=== PATIENT | female | born 1990 | race African-American/Black ===

== ENCOUNTER 2017-12-16 15:44 | Emergency (ER) | payer OTHER ==
[~2017-12-16] VITALS: Ht 154.9 cm; Wt 90.0 kg
[~2017-12-16 15:44] MED LIST: AVIATAB PO; PREN29TA PO
[2017-12-16 15:47] VITALS: BP 141/89; PULSE 102; RESP 16; TEMP 98.7; O2SAT 100
--- NOTE | 2017-12-16 17:43 | PD ---
HPI Chief Complaint: Related Problem Time Seen by Provider: 17:35 Travel History International Travel<30 days: No Contact w/Intl Traveler<30days: No Traveled to known affect area: No History of Present Illness HPI 27-year-old female , LMP October 12, found out she was 2 weeks ago, here for evaluation of vaginal spotting. The patient reports that while at work today she noted vaginal spotting. She denies any pain. No urinary symptoms. No clots. She has not yet been evaluated by an INTERACTIVE DESIGNER physician and has not yet had an ultrasound to confirm an IUP. PFSH Past Medical History ?: Unknown LMP: "SEPTEMBER" Past Surgical History Section: Yes Social History Alcohol Use: Yes ("I HAVEN'T LATELY") Tobacco Use: Yes (11/22 PPD) Substance Use: No Allergies-Medications (Allergen,Severity, Reaction): Coded Allergies: No Known Allergies (Unverified Adverse Reaction, Unknown, 12/16/17) Reported Meds & Prescriptions Reported Meds & Active Scripts Active Aviane (Levonorgestrel-Ethinyl Estradiol) 0.1-20 Mg-Mcg Tab 1 Tab PO DAILY Plus Iron 29-1 mg ( Vit-Iron Carbonyl) 1 Tab Tab 1 Tab PO DAILY Review of Systems Except as stated in HPI: all other systems reviewed are Neg Physical Exam Narrative GENERAL: Well-developed, well-nourished, comfortable, no apparent distress. SKIN: Focused skin assessment warm/dry. HEAD: Atraumatic. Normocephalic. EYES: Pupils equal and round. No scleral icterus. No injection or drainage. ENT: No nasal bleeding or discharge. Mucous membranes pink and moist. CARDIOVASCULAR: Regular rate and rhythm. No murmur appreciated. RESPIRATORY: No accessory muscle use. Clear to auscultation. Breath sounds equal bilaterally. GASTROINTESTINAL: Abdomen soft, non-tender, nondistended. MUSCULOSKELETAL: No obvious deformities. No clubbing. No cyanosis. No edema. NEUROLOGICAL: Awake and alert. No obvious cranial nerve deficits. Motor grossly within normal limits. Normal speech. PSYCHIATRIC: Appropriate mood and affect; insight and judgment normal. Data Data Last Documented VS Vital Signs Date Time Temp Pulse Resp B/P (MAP) Pulse Ox O2 Delivery O2 Flow Rate FiO2 12/16/17 15:47 98.7 102 16 141/89 (106) 100 Orders Orders Beta Hcg (Quant/Titer) (12/16/17 17:41) Complete Blood Count With Diff (12/16/17 17:41) Comprehensive Metabolic Panel (12/16/17 17:41) Urinalysis - C+S If Indicated (12/16/17 17:41) Ed Urine Pregnancytest Poc (12/16/17 17:41) Urine Culture (12/16/17 18:14) Nitrofurantoin Monohyd Macrocr (Macrobid (12/16/17 18:45) Us Pelvis (Ques Pr/Ect)W Trans (12/16/17 ) Labs Laboratory Tests Test 12/16/17 18:14 White Blood Count 5.2 TH/MM3 Red Blood Count 4.37 MIL/MM3 Hemoglobin 11.5 GM/DL Hematocrit 34.4 % Mean Corpuscular Volume 78.6 FL Mean Corpuscular Hemoglobin 26.4 PG Mean Corpuscular Hemoglobin Concent 33.6 % Red Cell Distribution Width 16.0 % Platelet Count 232 TH/MM3 Mean Platelet Volume 8.9 FL Neutrophils (%) (Auto) 52.1 % Lymphocytes (%) (Auto) 35.5 % Monocytes (%) (Auto) 11.1 % Eosinophils (%) (Auto) 0.9 % Basophils (%) (Auto) 0.4 % Neutrophils # (Auto) 2.7 TH/MM3 Lymphocytes # (Auto) 1.8 TH/MM3 Monocytes # (Auto) 0.6 TH/MM3 Eosinophils # (Auto) 0.0 TH/MM3 Basophils # (Auto) 0.0 TH/MM3 CBC Comment DIFF FINAL Differential Comment Urine Color YELLOW Urine Turbidity HAZY Urine pH 6.5 Urine Specific [place] 1.014 Urine Protein 30 mg/dL Urine Glucose (UA) NEG mg/dL Urine Ketones 40 mg/dL Urine Occult Blood LARGE Urine Nitrite NEG Urine Bilirubin NEG Urine Urobilinogen LESS THAN 2.0 MG/DL Urine Leukocyte Esterase MOD Urine RBC 31 /hpf Urine WBC 15 /hpf Urine Squamous Epithelial Cells 9 /hpf Urine Amorphous Sediment OCC Urine Bacteria MOD /hpf Urine Mucus FEW /lpf Microscopic Urinalysis Comment CULTURE INDICATED Blood Urea Nitrogen 8 MG/DL Creatinine 0.59 MG/DL Random Glucose 81 MG/DL Total Protein 7.5 GM/DL Albumin 3.9 GM/DL Calcium Level 8.9 MG/DL Alkaline Phosphatase 56 U/L Aspartate Amino Transf (AST/SGOT) 9 U/L Alanine Aminotransferase (ALT/SGPT) 14 U/L Total Bilirubin 0.3 MG/DL Sodium Level 134 MEQ/L Potassium Level 3.5 MEQ/L Chloride Level 104 MEQ/L Carbon Dioxide Level 21.9 MEQ/L Anion Gap 8 MEQ/L Estimat Glomerular Filtration Rate 146 ML/MIN Human Chorionic Gonadotropin, Quant 66734 MIU/ML [facility] Medical Decision Making Medical Screen Exam Complete: Yes Emergency Medical Condition: Yes Medical Record Reviewed: Yes Differential Diagnosis Ectopic , threatened , spontaneous , missed , inevitable , implantation bleed Narrative Course Vital signs reviewed. CBC: WBC 5.2, hemoglobin 11.5, hematocrit 34.4, platelets 232. CMP is essentially unremarkable. Beta hCG is 11,072. Patient's blood type from previous visit is O+. UA: Hazy, 30 protein, 40 ketones, large occult blood, moderate leukocyte esterase, 31 RBCs, 15 WBCs, moderate bacteria. The patient was started on Macrobid. Pelvic ultrasound: CONCLUSION: 1. Intrauterine with apparent demise. heart tones cannot be demonstrated at the time of imaging. 2. Small corpus luteal cyst of the left ovary. No evidence of ectopic. Patient was made aware of all findings. Pelvic exam performed in the presence of a female nurse shows a scant amount of blood in the vaginal vault with cervix dilated around 1 cm. I discussed the case with on-call OB hospitalist Dr. Mckay who recommends that the patient be discharged home and given a chance to pass the fetus on her own with close follow-up with an INTERACTIVE DESIGNER physician this week. Patient is amenable to this plan. She was advised on when to return to the emergency department. Diagnosis Primary Impression: Inevitable Additional Impression: UTI (urinary tract infection) Qualified Codes: N39.0 - Urinary tract infection, site not specified; R31.9 - Hematuria, unspecified Referrals: [facility] 1 day Additional Instructions: Follow-up with an INTERACTIVE DESIGNER physician this week. Return to the emergency room if worsening symptoms or any other concerns as discussed. Scripts Nitrofurantoin Monohydrate Macrocrystals (Macrobid) 100 Mg Cap 100 MG PO BID for Infection for 7 Days, #14 CAP 0 Refills Prov: John Cade MD 12/16/17 Disposition: 01 DISCHARGE HOME Condition: Stable John Cade MD Dec 16, 2017 17:43
[2017-12-16 18:33] LABS: AMORPHOUS SEDIMENT, URINE OCC; BACTERIA, URINE MOD /hpf; BILIRUBIN, URINE NEG (NEG); BLOOD, URINE LARGE (NEG); GLUCOSE,URINE NEG (NEG); KETONE, URINE 40 mg/dL (NEG); MUCUS URINE FEW /lpf (OCC); NITRITE,URINE NEG (NEG); PH, URINE 6.5 (5.0-8.5); SQUAMOUS EPITHELIAL CELL URINE 9 /hpf (0-5); URINE COLOR YELLOW (YELLW/STRAW); URINE LEUKOCYTE ESTERASE MOD (NEG)
[2017-12-16 18:44] LABS: AUTOMATED NEUTROPHIL # 2.7 TH/MM3 (1.8-7.7); BASOPHIL % 0.4 % (0.0-2.0); EOSINOPHIL % 0.9 % (0.0-4.0); HEMATOCRIT 34.4 % (35.0-46.0); HEMOGLOBIN 11.5 GM/DL (11.6-15.3); LYMPH % 35.5 % (9.0-44.0); LYMPHOCYTE # 1.8 TH/MM3 (1.0-4.8); MEAN CELL VOLUME 78.6 FL (80.0-100.0); MEAN CORPUSCULAR HEMOGLOBIN 26.4 PG (27.0-34.0); MEAN CORPUSCULAR HGB CONC 33.6 % (32.0-36.0); MEAN PLATELET VOLUME 8.9 FL (7.0-11.0); MONO % 11.1 % (0.0-8.0); MONOCYTE # 0.6 TH/MM3 (0-0.9); NEUT % 52.1 % (16.0-70.0); PLATELET COUNT 232 TH/MM3 (150-450); RED BLOOD COUNT 4.37 MIL/MM3 (4.00-5.30); WHITE BLOOD COUNT 5.2 TH/MM3 (4.0-11.0)
[2017-12-16] MEDS ORDERED: NITROFURANTOIN MONOHYD MACROCR 100 MG CAP PO ONE (18:45)
[2017-12-16 19:04] LABS: ALBUMIN 3.9 GM/DL (3.4-5.0); AST (GOT) 9 U/L (15-37); BICARBONATE 21.9 MEQ/L (21.0-32.0); BLOOD UREA NITROGEN 8 MG/DL (7-18); CALCIUM 8.9 MG/DL (8.5-10.1); CHLORIDE 104 MEQ/L (98-107); CREATININE 0.59 MG/DL (0.50-1.00); GLOMERULAR FILTRATION RATE 146 ML/MIN (>89); GLUCOSE,RANDOM 81 MG/DL (74-106); SODIUM (NA) 134 MEQ/L (136-145)
[2017-12-16 19:06] LABS: ALT (GPT) 14 U/L (10-53)
[2017-12-16 19:22] LABS: ALKALINE PHOSPHATASE 56 U/L (45-117); TOTAL BILIRUBIN ADULT 0.3 MG/DL (0.2-1.0); TOTAL PROTEIN 7.5 GM/DL (6.4-8.2)
--- NOTE | 2017-12-16 19:45 | RADRPT ---
EXAM DATE/TIME: 12/16/2017 18:11 [facility] COMPARISON: No previous studies available for comparison. INDICATIONS : Bleeding. LAB(S): Beta-hC MEDICAL HISTORY : None. SURGICAL HISTORY : section. ENCOUNTER: Initial ACUITY: 3 days PAIN SCORE: 0/10 LOCATION: Bilateral pelvis MEASUREMENTS: UTERUS: 9.2 x 7.9 x 5.0 cm ENDOMETRIAL STRIPE: >20 mm RIGHT OVARY: 2.6 x 0.9 x 1.1 cm LEFT OVARY: 2.6 x 2.0 x 1.8 cm FREE FLUID: Yes CROWN RUMP LENGTH: 1.3 cm = 7 WKS 4 DAYS FINDINGS: UTERUS: Gestational sac, yolk sac and pole noted at approximate 7 weeks 4 days gestational age. No perc eptible heart tones. RIGHT OVARY: Ovary contains no mass or significant cystic lesion. LEFT OVARY: 11 mm simple appearing cyst. MISCELLANEOUS: No free fluid. CONCLUSION: 1. Intrauterine with apparent demise. heart tones cannot be demonstrated at the time of imaging. 2. Small corpus luteal cyst of the left ovary. No evidence of ectopic. Estrada Negrete MD on December 16, 2017 at 19:41 Board Certified Radiologist. This report was verified electronically.
[2017-12-16] MEDS ORDERED: MACR100C2 PO (20:19)
== END 2017-12-16 20:42 | disposition home or self-care (01) ==
LOC: NEPD 15:44
DX: O02.1 Missed abortion (principal); O03.88 Urinary tract infection following complete or unspecified spontaneous abortion; N83.12 Corpus luteum cyst of left ovary; O99.331 Smoking (tobacco) complicating pregnancy, first trimester; F17.200 Nicotine dependence, unspecified, uncomplicated; Z3A.01 Less than 8 weeks gestation of pregnancy
CPT/HCPCS: 76700; 76817; 80053; 81001; 84702; 84703; 85025; 87086; 99285

== ENCOUNTER 2017-12-20 06:12 | Emergency (ER) | payer OTHER ==
[~2017-12-20] VITALS: Ht 154.9 cm; Wt 88.0 kg
[~2017-12-20 06:12] MED LIST changes: +MACR100C2 PO
[2017-12-20 06:18] VITALS: BP 108/69; PULSE 105; RESP 20; TEMP 98.6; O2SAT 100
[2017-12-20] MEDS ORDERED: SODIUM CHLOR 0.9% 1000 ML INJ 1,000 ML IV ONE (06:27)
[2017-12-20] MEDS ORDERED: ONDANSETRON HCL 4 MG/2 ML VIAL IVP ONE (06:30)
[2017-12-20] MEDS ORDERED: MORPHINE SULFATE 4 MG/ML INJ IV PUSH ONE ×2 (06:30→07:00)
--- NOTE | 2017-12-20 06:35 | PD ---
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 The patient was seen several days ago in the emergency Department for vaginal bleeding, had ultrasound which revealed demise. The patient was seen at [facility] yesterday, had a physical examination, was advised to return in 2 weeks if she did not have a spontaneous . The patient states she was at work last night when she developed lower abdominal pain, bleeding, cramping, with the passage of large clots. She is unsure if she has passed any products of conception. She denies any nausea or vomiting. Symptoms are moderate. There are no current alleviating factors. PFSH Past Medical History Medical History: Denies Significant Hx Tetanus Vaccination: < 5 Years Influenza Vaccination: No ?: Not LMP: 10/12/2017 Past Surgical History Section: Yes Social History Alcohol Use: Yes (occasionally) Tobacco Use: Yes (11/22 PPD) Substance Use: No Allergies-Medications (Allergen,Severity, Reaction): Coded Allergies: No Known Allergies (Unverified Adverse Reaction, Unknown, 12/16/17) Reported Meds & Prescriptions Reported Meds & Active Scripts Active Macrobid (Nitrofurantoin Monoh/Nitrofur Macro) 100 Mg Cap 100 Mg PO BID 7 Days Aviane (Levonorgestrel-Ethinyl Estradiol) 0.1-20 Mg-Mcg Tab 1 Tab PO DAILY Plus Iron 29-1 mg ( Vit-Iron Carbonyl) 1 Tab Tab 1 Tab PO DAILY Review of Systems Except as stated in HPI: all other systems reviewed are Neg General / Constitutional: No: Fever Cardiovascular: No: Chest Pain or Discomfort Respiratory: No: Shortness of Breath Gastrointestinal: No: Nausea, Vomiting, Abdominal Pain Genitourinary: Positive: Pelvic Pain, Vaginal Bleeding Physical Exam Narrative GENERAL: Awake, alert, pleasant 27-year-old female who appears her stated age and appears in moderate discomfort. SKIN: Focused skin assessment warm/dry. HEAD: Atraumatic. Normocephalic. EYES: No injection or drainage. NECK: Trachea midline. No JVD. CARDIOVASCULAR: Regular rate and rhythm. No murmur appreciated. RESPIRATORY: No accessory muscle use. Clear to auscultation. Breath sounds equal bilaterally. GASTROINTESTINAL: Abdomen soft, non-tender, nondistended. Pelvic: The exam was performed in the presence of a female nurse. External examination reveals blood at the introitus. Speculum examination reveals blood with blood clots in the vaginal vault. These were removed using Monica forceps with 4 x 4's and [place]well swabs. However, is unable to visualize the cervix after multiple attempts. However, there was no excessive hemorrhaging. MUSCULOSKELETAL: No obvious deformities. No clubbing. No cyanosis. No edema. NEUROLOGICAL: Awake and alert. No obvious cranial nerve deficits. Motor grossly within normal limits. Normal speech. PSYCHIATRIC: Appropriate mood and affect; insight and judgment normal. Data Data Last Documented VS Vital Signs Date Time Temp Pulse Resp B/P (MAP) Pulse Ox O2 Delivery O2 Flow Rate FiO2 12/20/17 06:18 98.6 105 20 108/69 (82) 100 Orders Orders Beta Hcg (Quant/Titer) (12/20/17 06:27) Complete Blood Count With Diff (12/20/17 06:27) Us Pelvis (Ques Preg/Ectopic) (12/20/17 ) Iv Access Insert/Monitor (12/20/17 06:27) Sodium Chlor 0.9% 1000 Ml Inj (Ns 1000 M (12/20/17 06:27) Ondansetron Inj (Zofran Inj) (12/20/17 06:30) Morphine Inj (Morphine Inj) (12/20/17 06:30) [facility] Medical Decision Making Medical Screen Exam Complete: Yes Emergency Medical Condition: Yes Medical Record Reviewed: Yes Differential Diagnosis Differential diagnosis includes incomplete AB, inevitable AB, complete AB, septic AB, symptomatic anemia. Narrative Course IV was established, labs are drawn and sent, and the patient was placed on cardiac telemetry monitoring and continuous pulse oximetry monitoring. The patient was administered morphine, Zofran, and IV fluids. I reviewed the EMR, the patient had blood work performed on November 09, 2016 which revealed she is O+, therefore, no RhoGAM indicated. A pelvic exam was completed in the presence of a female nurse. Ultrasound was performed to evaluate for possible retained products of conception. The patient was signed out to the oncoming physician at 7 AM with labs and ultrasound pending. Condition: Stable Ash Goode MD Dec 20, 2017 06:35
[2017-12-20 07:08] LABS: AUTOMATED NEUTROPHIL # 5.3 TH/MM3 (1.8-7.7); BASOPHIL % 0.3 % (0.0-2.0); EOSINOPHIL # 0.1 TH/MM3 (0-0.4); EOSINOPHIL % 0.9 % (0.0-4.0); HEMATOCRIT 36.5 % (35.0-46.0); HEMOGLOBIN 12.1 GM/DL (11.6-15.3); LYMPH % 20.4 % (9.0-44.0); LYMPHOCYTE # 1.5 TH/MM3 (1.0-4.8); MEAN CELL VOLUME 79.3 FL (80.0-100.0); MEAN CORPUSCULAR HEMOGLOBIN 26.2 PG (27.0-34.0); MEAN CORPUSCULAR HGB CONC 33.1 % (32.0-36.0); MEAN PLATELET VOLUME 9.1 FL (7.0-11.0); MONO % 6.6 % (0.0-8.0); MONOCYTE # 0.5 TH/MM3 (0-0.9); NEUT % 71.8 % (16.0-70.0); PLATELET COUNT 232 TH/MM3 (150-450); WHITE BLOOD COUNT 7.4 TH/MM3 (4.0-11.0)
--- NOTE | 2017-12-20 08:50 | RADRPT ---
EXAM DATE/TIME: 12/20/2017 07:44 [facility] COMPARISON: US PELVIS (QUEST PREG/ECTOPIC) W/TRANSVAG, December 16, 2017, 18:11. INDICATIONS : Bleeding and pain with . LAB(S): Beta-hC MEDICAL HISTORY : . Pelvic bleeding. Tobacco use. SURGICAL HISTORY : section. ENCOUNTER: Subsequent ACUITY: 3 days PAIN SCORE: 7/10 LOCATION: Bilateral pelvis MEASUREMENTS: UTERUS: 12.4 x 7.9 x 6.8 cm ENDOMETRIAL STRIPE: >20 mm RIGHT OVARY: 3.4 x 2.4 x 1.5 cm LEFT OVARY: 3.8 x 1.9 x 1.7 cm FREE FLUID: Yes Trace in posterior cul de sac. CROWN RUMP LENGTH: Non visualized. = WKS DAYS FHR: Non visualized. BPM FINDINGS: UTERUS: No intrauterine gestational sac or pole is identified. There is diffusely heterogeneous thicken ed endometrium. RIGHT OVARY: Ovary contains no mass or significant cystic lesion. LEFT OVARY: Redemonstration of simple appearing cyst are measuring up to 14 mm. This may be paraovarian. Left ova ry otherwise is unremarkable. MISCELLANEOUS: Trace free fluid. CONCLUSION: 1. Diffusely heterogeneous thickened endometrium with no intrauterine identified in this pa tient with suspected demise on recent ultrasound exam. 2. Redemonstration of 14 mm possibly paraovarian cyst. Pepe Powers MD on December 20, 2017 at 8:42 Board Certified Radiologist. This report was verified electronically.
[2017-12-20 09:01] VITALS: BP 126/93; PULSE 88; RESP 17; O2SAT 100
[2017-12-20] MEDS ORDERED: ACETAMINOPHEN/HYDROcodone 325 MG/5 MG TAB PO ONE (10:15)
[2017-12-20] MEDS ORDERED: MISOPROSTOL 200 MCG TAB ONE (10:15)
[2017-12-20] MEDS ORDERED: PERC5TAB12 PO (10:41)
[2017-12-20] MEDS ORDERED: ZOFR4TAB3 SL (10:41)
--- NOTE | 2017-12-20 10:41 | PD ---
Physical Exam Narrative GENERAL: Well-nourished, well-developed patient. SKIN: Warm and dry. HEAD: Normocephalic and atraumatic. EYES: No injection or drainage. ENT: No nasal drainage noted. NECK: Supple, trachea midline. CARDIOVASCULAR: Regular rate and rhythm RESPIRATORY: no increased effort. No accessory muscle use. NEUROLOGICAL: Awake and alert. Motor and sensory grossly within normal limits. Normal speech. Data Data Last Documented VS Vital Signs Date Time Temp Pulse Resp B/P (MAP) Pulse Ox O2 Delivery O2 Flow Rate FiO2 12/20/17 09:01 88 17 126/93 (104) 100 Room Air 12/20/17 06:18 98.6 Orders Orders Beta Hcg (Quant/Titer) (12/20/17 06:27) Complete Blood Count With Diff (12/20/17 06:27) Iv Access Insert/Monitor (12/20/17 06:27) Sodium Chlor 0.9% 1000 Ml Inj (Ns 1000 M (12/20/17 06:27) Ondansetron Inj (Zofran Inj) (12/20/17 06:30) Morphine Inj (Morphine Inj) (12/20/17 06:30) Morphine Inj (Morphine Inj) (12/20/17 07:00) Us Pelvis (Ques Pr/Ect)W Trans (12/20/17 ) Misoprostol (Cytotec) (12/20/17 10:15) Acetamin-Hydrocod 325-5 Mg ([place] 5-325 (12/20/17 10:15) Labs Laboratory Tests Test 12/20/17 06:39 White Blood Count 7.4 TH/MM3 Red Blood Count 4.60 MIL/MM3 Hemoglobin 12.1 GM/DL Hematocrit 36.5 % Mean Corpuscular Volume 79.3 FL Mean Corpuscular Hemoglobin 26.2 PG Mean Corpuscular Hemoglobin Concent 33.1 % Red Cell Distribution Width 16.0 % Platelet Count 232 TH/MM3 Mean Platelet Volume 9.1 FL Neutrophils (%) (Auto) 71.8 % Lymphocytes (%) (Auto) 20.4 % Monocytes (%) (Auto) 6.6 % Eosinophils (%) (Auto) 0.9 % Basophils (%) (Auto) 0.3 % Neutrophils # (Auto) 5.3 TH/MM3 Lymphocytes # (Auto) 1.5 TH/MM3 Monocytes # (Auto) 0.5 TH/MM3 Eosinophils # (Auto) 0.1 TH/MM3 Basophils # (Auto) 0.0 TH/MM3 CBC Comment DIFF FINAL Differential Comment Human Chorionic Gonadotropin, Quant 6316 MIU/ML MDM Supervised Visit with [facility]: No Interpretation(s) CBC & BMP Diagram 12/20/17 06:39 Last 24 hours Impressions Pelvis Ultrasound 12/20/17 0000 Signed Impressions: Service Date/Time: December 07:44 - CONCLUSION: 1. Diffusely heterogeneous thickened endometrium with no intrauterine identified in this patient with suspected demise on recent ultrasound exam. 2. Redemonstration of 14 mm possibly paraovarian cyst. Pepe Powers MD Narrative Course Signed over to me to follow ultrasound and reevaluate. Ultrasound shows no IUP but thickened endometrium. Quant is trending down. Will give patient misoprostol as recommended and sent home on Motrin, Lortab and Zofran as recommended as well, Patient denies any new complaints and states that they are feeling better. Patient happy with care, all questions answered. Patient knows that follow up is incumbent on them and to return to the emergency room immediately if new or worsening symptoms develop. Patient given strict return precautions, vitals reviewed and are normal, agrees to further workup as an outpatient. Physician Communication Physician Communication dr anthony states to give patient misoprostol 600 mg by mouth buccal times one and send home on Motrin, Lortab and Zofran Diagnosis Primary Impression: Miscarriage Patient Instructions: General Instructions Additional Instruction: Return as needed, Lortab as needed for severe pain, Zofran as needed for nausea , follow with gynecology next week, motrin as needed for moderate pain Med/Other Pt SpecificInfo: Prescription(s) given Scripts Ondansetron Odt (Zofran Odt) 4 Mg Tab 4 MG SL Q6HR Y for Nausea/Vomiting, #10 TAB 0 Refills Prov: Maile Krishna MD 12/20/17 Oxycodone-Acetaminophen (Percocet) 5-325 mg Tab 1 TAB PO Q6H Y for PAIN, #10 TAB 0 Refills Prov: Maile Krishna MD 12/20/17 Disposition: 01 DISCHARGE HOME Condition: Stable Maile Krishna MD Dec 20, 2017 10:41
[2017-12-20 10:54] VITALS: BP 136/89; TEMP 87
== END 2017-12-20 10:57 | disposition home or self-care (01) ==
LOC: NEPE 06:12
DX: O20.0 Threatened abortion (principal); O99.331 Smoking (tobacco) complicating pregnancy, first trimester
CPT/HCPCS: 76700; 76817; 84702; 85025; 96361; 96374; 96375; 96376; 99284; J2270; J2405; J7030

== ENCOUNTER 2018-04-04 07:02 | Emergency (ER) | END 2018-04-04 11:53 | disposition home or self-care (01) | DX: Z03.89 Encounter for observation for other suspected diseases and conditions ruled out (principal); Z20.2 Contact with and (suspected) exposure to infections with a predominantly sexual mode of transmission ==